=== PATIENT | female | born 1935 | race Caucasian/White ===

== ENCOUNTER 2017-05-14 07:37 | Emergency (ER) | payer OTHER ==
[~2017-05-14] VITALS: Ht 162.6 cm; Wt 68.0 kg
[~2017-05-14 07:37] MED LIST: ASPIRIN EC81 M1 PO; ASPIRIN81 M2 PO; AUGMENTIN 500-1 EACH PO; CALCARB 600 WI1 EACH; CALCIUM 500 +1 EAC5; CALCIUM 600 +1 EAC1 PO; CALCIUM-MAGNES1 EAC2 PO; CHERATUSSIN AC118 ML PO; CHEST CONGESTI1 EAC1 PO; CRESTOR10 MG; DUEXIS 800-26.1 EACH; DULOXETINE HCL20 MG PO; ETODOLAC 400 M400 M1; FISH OIL 1,0001 EAC5 PO; FISH OIL 1,001000 M2 PO; FLONASE 0.05%50 MCG NASAL; HYDROCODON-ACE1 EAC7; IBUPROFEN 400400 M2 PO; LIPITOR 20 MG T20 M1 PO; LIPITOR10 MG PO; MINIPRIN81 MG; OMEGA 3-6-9 CO1 EACH PO; OMEGA-31000 M1 PO; OMEPRAZOLE 20 M20 M1 PO; PAXIL10 MG PO; PENNSAID150 ML; PRILOSEC40 MG; PRILOSEC40 MG PO; REMERON15 MG PO; RESTASIS1 EACH OPHTHALMIC; RESTORIL15 MG PO; SKELAXIN 800 M800 M1; ZOFRAN 4 MG ORAL4 MG PO
[2017-05-14] MEDS ORDERED: OMEPRAZOLE40 MG PO (07:54)
[2017-05-14] MEDS ORDERED: LOVASTATIN 20 M20 MG PO (07:54)
[2017-05-14 08:22] LABS: HEMATOCRIT 45.3 % (37.0-47.0); HEMOGLOBIN 15.1 gm/dL (12.0-15.0); MCH 28.7 pg (26.0-34.0); MCHC 33.2 g/dL (28.0-37.0); MCV 86.5 fL (80.0-100.0); MPV 7.4 fl. (7.2-11.1); NUCLEATED RBCS 0 /100WBC; PLATELET COUNT* 246 thou/uL (150-400); RBC 5.24 mil/uL (4.20-5.00); RDW-CV 13.4 % (10.5-14.5); WBC 10.8 thou/uL (4.0-11.0)
[2017-05-14 08:28] LABS: INR 1.1; PROTIME 10.3 Seconds (9.20-11.50)
[2017-05-14 08:29] LABS: ANION GAP 10 mmol/L (7-16); BUN 13 mg/dL (7-18); CALCIUM 8.8 mg/dL (8.5-10.1); CHLORIDE 106 mmol/L (98-107); CO2 27 mmol/L (21-32); CREATININE 1.2 mg/dL (0.6-1.3); GLUCOSE 168 mg/dL (70-99); POTASSIUM 4.1 mmol/L (3.5-5.1); SODIUM 143 mmol/L (136-145)
[2017-05-14 08:36] LABS: ALBUMIN 3.5 g/dL (3.4-5.0); ALKALINE PHOSPHATASE 122 U/L (46-116); LIPASE 213 U/L (73-393); SGOT 36 U/L (15-37); SGPT 47 U/L (30-65); TOTAL BILIRUBIN 0.5 mg/dL (<0.1-1.0); TOTAL PROTEIN 7.5 g/dL (6.4-8.2); TROPONIN-I LEVEL <0.06 ng/mL (<0.06)
[2017-05-14 08:38] LABS: ABSOLUTE BASOPHILS 0.1 thou/uL (0.0-0.2); ABSOLUTE LYMPHOCYTES 0.6 thou/uL (0.8-5.3); ABSOLUTE MONOCYTES 0.8 thou/uL (0.0-1.2); ABSOLUTE NEUTROPHILS 9.3 thou/uL (1.6-8.1); PLATELET ESTIMATE ADEQUATE
[2017-05-14 09:56] VITALS: BP 149/61
--- NOTE | 2017-05-14 10:11 | EKG ---
[place] [address] ELECTROCARDIOGRAM REPORT Name: CARLIE FAULKNER Room: [facility]#: [id number] Admission: 05/14/17 Attend Phys: Discharge: 05/14/17 Date of : 31 Report #: [id number] THIS REPORT FOR: //name// [facility] ED Test Date: 2017-05-14 Test Time: 07:49:59 Pat Name: CARLIE FAULKNER Department: Room: Gender: F Video Game Maker: Kevin DE JESUS : 1935 Requested By: Saman Hernandez Order Number: [id number] MD: Ibrahima Palomares Measurements Intervals [place] Rate: 80 P: 67 SD: 181 QRS: -44 QRSD: 136 T: 103 QT: 428 QTc: 494 Interpretive Statements Sinus rhythm left axis Probable left atrial enlargement Left bundle branch block Compared to ECG 04/02/2015 09:02:06 Left bundle-branch block now present Electronically Signed On 05-14-2017 10:10:51 [employer]PACTOR DRIVER by Ibrahima Palomares [email or web address] <ELECTRONICALLY SIGNED> By: Ibrahima Palomares MD, [facility] 05/14/17 1010 0749 0749 Ibrahima Palomares MD, [facility] /EPI
== END 2017-05-14 09:45 | disposition home or self-care (01) ==
LOC: M.ERS 07:37
PROVIDERS: Emergency Medicine Emergency Medical Services
DX: I95.1 Orthostatic hypotension (principal); S01.112A Laceration without foreign body of left eyelid and periocular area, initial encounter; Z90.710 Acquired absence of both cervix and uterus; W18.39XA Other fall on same level, initial encounter; Y93.89 Activity, other specified; Y92.89 Other specified places as the place of occurrence of the external cause; Y99.8 Other external cause status

== ENCOUNTER → 2017-06-10 | Outpatient (CLI) | payer OTHER ==
[~2017-06-10] MED LIST changes: +LOVASTATIN 20 M20 MG PO; +OMEPRAZOLE40 MG PO
== END ==
LOC: M.RAD 14:05
DX: S32.512A Fracture of superior rim of left pubis, initial encounter for closed fracture (principal); X58.XXXA Exposure to other specified factors, initial encounter; Y93.89 Activity, other specified; Y92.89 Other specified places as the place of occurrence of the external cause; Y99.8 Other external cause status

== ENCOUNTER → 2017-06-28 | Outpatient (CLI) | payer OTHER | LOC: M.LAB 09:36 | DX: E55.9 Vitamin D deficiency, unspecified (principal) ==

== ENCOUNTER → 2017-07-01 | Outpatient (CLI) | payer OTHER | LOC: M.RAD 13:26 | DX: S32.89XA Fracture of other parts of pelvis, initial encounter for closed fracture (principal); X58.XXXA Exposure to other specified factors, initial encounter; Y93.89 Activity, other specified; Y92.89 Other specified places as the place of occurrence of the external cause; Y99.8 Other external cause status ==

== ENCOUNTER → 2018-11-01 | Outpatient (CLI) | payer MEDICARE | LOC: M.RAD 09:36 | DX: R05 Cough (principal); R06.2 Wheezing ==

== ENCOUNTER → 2019-12-01 | Outpatient (CLI) | payer OTHER | LOC: M.ULTRA 09:15 | PROVIDERS: ATTEND Family Medicine | DX: R79.89 Other specified abnormal findings of blood chemistry (principal) ==

== ENCOUNTER 2020-07-11 08:13 | Emergency (ER) | payer OTHER ==
[~2020-07-11] VITALS: Ht 160 cm; Wt 65.8 kg
[2020-07-11] MEDS ORDERED: LISINOPRIL5 MG PO (08:34)
[2020-07-11 09:05] LABS: HEMATOCRIT 44.2 % (37.0-47.0); HEMOGLOBIN 14.6 gm/dL (12.0-15.0); MCH 28.8 pg (26.0-34.0); MCHC 32.9 g/dL (28.0-37.0); MCV 87.3 fL (80.0-100.0); MPV 6.7 fl. (7.2-11.1); RBC 5.06 mil/uL (4.20-5.00); WBC 6.5 thou/uL (4.0-11.0)
[2020-07-11 09:14] LABS: CALCIUM 8.8 mg/dL (8.5-10.1); CREATININE 1.3 mg/dL (0.6-1.3); POTASSIUM 4.5 mmol/L (3.5-5.1)
[2020-07-11] MEDS ORDERED: TESSALON PERLE100 M1 PO (11:37)
[2020-07-11 11:50] VITALS: BP 162/70
--- NOTE | 2020-07-11 16:00 | EKG ---
[place] [address] ELECTROCARDIOGRAM REPORT Name: CARLIE CHILDRESS Room: [facility]#: [id number] Admission: 07/11/20 Attend Phys: Discharge: 07/11/20 Date of : 31 Date of Service: 07/11/20906 Report #: [id number] THIS REPORT FOR: //name// [facility] ED Test Date: 2020-07-11 Test Time: 09:07:30 Pat Name: CARLIE FAULKNER Department: Room: Gender: F Clin Nurse Spec: : 1935 Requested By: Saman Hernandez Order Number: [id number] MD: Mitchel Sim Measurements Intervals [place] Rate: 59 P: 55 ID: [id number] QRS: -46 QRSD: 142 T: 108 QT: 464 QTc: 460 Interpretive Statements Sinus rhythm Left bundle branch block Compared to ECG 05/14/2017 07:49:59 No significant changes Electronically Signed On 07-11-2020 16:00:34 CDT by Mitchel Sim [email or web address] <ELECTRONICALLY SIGNED> By: Mitchel Sim MD, FACC 07/11/20 1600 6 6 Mitchel Sim MD, [facility] /EPI
== END 2020-07-11 11:50 | disposition home or self-care (01) ==
LOC: M.ERS 08:13
PROVIDERS: Emergency Medicine Emergency Medical Services
DX: U07.1 COVID-19 (principal); I10 Essential (primary) hypertension; E11.9 Type 2 diabetes mellitus without complications; Z90.710 Acquired absence of both cervix and uterus; Z98.890 Other specified postprocedural states; Z79.82 Long term (current) use of aspirin; Z79.899 Other long term (current) drug therapy

== ENCOUNTER 2020-07-19 14:16 | Emergency (ER) | payer OTHER ==
[~2020-07-19] VITALS: Ht 160 cm; Wt 63.5 kg
[~2020-07-19 14:16] MED LIST changes: +LISINOPRIL5 MG PO; +TESSALON PERLE100 M1 PO
[2020-07-19 15:21] LABS: URINE BILIRUBIN NEGATIVE (Negative); URINE BLOOD 2+ (Negative); URINE COLOR YELLOW; URINE GLUCOSE-RANDOM NEGATIVE (Negative); URINE KETONES NEGATIVE (Negative); URINE LEUKOCYTES NEGATIVE (Negative); URINE NITRITE NEGATIVE (Negative); URINE PROTEIN NEGATIVE (Negative); URINE UROBILINOGEN 0.2 E.U./dl (0.2-1.0)
[2020-07-19 15:22] LABS: URINE CLARITY HAZY
[2020-07-19 15:28] LABS: ABSOLUTE BASOPHILS 0.1 thou/uL (0.0-0.2); ABSOLUTE EOSINOPHILS 0.1 thou/uL (0.0-0.7); ABSOLUTE LYMPHOCYTES 1.1 thou/uL (0.8-5.3); ABSOLUTE MONOCYTES 0.6 thou/uL (0.0-1.2); ABSOLUTE NEUTROPHILS 7.1 thou/uL (1.6-8.1); BASOPHILS 1.1 %; EOSINOPHILS 0.8 %; HEMATOCRIT 46.9 % (37.0-47.0); HEMOGLOBIN 15.7 gm/dL (12.0-15.0); LYMPHOCYTES 12.3 %; MCH 29.5 pg (26.0-34.0); MCHC 33.4 g/dL (28.0-37.0); MCV 88.3 fL (80.0-100.0); MONOCYTES 6.2 %; MPV 6.8 fl. (7.2-11.1); NUCLEATED RBCS 0 /100WBC; PLATELET COUNT* 296 thou/uL (150-400); POLYS 79.6 %; RBC 5.31 mil/uL (4.20-5.00); RDW-CV 13.2 % (10.5-14.5); WBC 8.9 thou/uL (4.0-11.0)
[2020-07-19 15:33] LABS: BACTERIA None Seen /HPF (None Seen); CASTS None Seen /LPF (None Seen); CRYSTALS None Seen /LPF (None Seen); SQUAMOUS >10 Many /LPF (0-3); URINE RBC 0-2 Rare /HPF (0-2); URINE WBC None Seen /HPF (0-5)
[2020-07-19 15:36] LABS: CALCIUM 9.2 mg/dL (8.5-10.1); CREATININE 1.2 mg/dL (0.6-1.3)
[2020-07-19 15:47] LABS: TOTAL BILIRUBIN 0.5 mg/dL (<0.1-1.0); TOTAL PROTEIN 8.1 g/dL (6.4-8.2)
[2020-07-19] MEDS ORDERED: TESSALON PERLE100 MG PO (16:01)
[2020-07-19] MEDS ORDERED: PROAIR HFA8.5 GM INH (16:01)
[2020-07-19] MEDS ORDERED: LORATIDINE 10 M10 M1 PO (16:01)
[2020-07-19] MEDS ORDERED: PREDNISONE 20 M20 MG PO (16:01)
[2020-07-19 16:14] VITALS: BP 115/65
--- NOTE | 2020-07-19 16:57 | EKG ---
[place] [address] ELECTROCARDIOGRAM REPORT Name: CARLIE CHILDRESS Room: [facility]#: [id number] Admission: 07/19/20 Attend Phys: Discharge: 07/19/20 Date of : 31 Date of Service: 07/19/20 1435 Report #: [id number] THIS REPORT FOR: //name// [facility] ED Test Date: 2020-07-19 Test Time: 14:35:16 Pat Name: CARLIE FAULKNER Department: Room: Gender: F Pattern Ruler: DEYA : 1935 Requested By: Alberto Mckeon Order Number: [id number] MD: Eliseo Moore Measurements Intervals [place] Rate: 67 P: 53 AL: 159 QRS: -32 QRSD: 137 T: 95 QT: 439 QTc: 464 Interpretive Statements Sinus rhythm Left bundle branch block Baseline wander in lead(s) V2 Compared to ECG 07/11/2020 09:07:30 No significant changes Electronically Signed On 07-19-2020 16:57:43 CDT by Eliseo Moore [email or web address] <ELECTRONICALLY SIGNED> By: Eliseo Moore MD, [facility] 07/19/20 1657 1435 1435 Eliseo Moore MD, [facility] /EPI
== END 2020-07-19 16:14 | disposition home or self-care (01) ==
LOC: M.ERS 14:16
PROVIDERS: Emergency Medicine
DX: U07.1 COVID-19 (principal); J20.8 Acute bronchitis due to other specified organisms; E11.9 Type 2 diabetes mellitus without complications; I10 Essential (primary) hypertension; Z79.899 Other long term (current) drug therapy

== ENCOUNTER → 2020-08-06 | Outpatient (CLI) | payer OTHER ==
[~2020-08-06] MED LIST changes: +LORATIDINE 10 M10 M1 PO; +PREDNISONE 20 M20 MG PO; +PROAIR HFA8.5 GM INH; +TESSALON PERLE100 MG PO
== END ==
LOC: M.RAD 07-30 07:55
PROVIDERS: ATTEND Nurse Practitioner Family
DX: Z12.31 Encounter for screening mammogram for malignant neoplasm of breast (principal); N64.89 Other specified disorders of breast

== ENCOUNTER → 2020-09-16 | Outpatient (CLI) | payer OTHER | LOC: M.RAD 13:07 | PROVIDERS: ATTEND Family Medicine | DX: R05 Cough (principal) ==